=== PATIENT | male | born 1950 | race Caucasian/White ===

== ENCOUNTER → 2020-04-21 | Outpatient (CLI) | payer MEDICARE ==
[~2020-04-21] MED LIST: ASPIR 8181 M1 PO; ATROVENT15 ML NS; CLARITIN-D 24 H1 TA1 PO; CLOPIDOGREL75 MG PO; COUMADIN 1MG TAB1 M1 PO; COUMADIN7.5 MG PO; HYTRIN 5 M5 MG/1 CAP PO; LISINOPRIL10 MG PO; MEDROLDOSEPACK PO; NORCO 5-325 TA1 EACH PO; PERCOCET 5-3251 EACH PO; PREDNISONE 20 M20 M1 PO; SYMBICORT160 MCG/4. INH
== END ==
LOC: M.CT 14:55
DX: I71.2 Thoracic aortic aneurysm, without rupture (principal); I72.3 Aneurysm of iliac artery

== ENCOUNTER 2021-01-09 22:40 | Emergency (ER) | payer MEDICARE ==
[~2021-01-09] VITALS: Ht 185.4 cm; Wt 108.9 kg
[2021-01-09] MEDS ORDERED: PREDNISONE50 MG PO (23:30)
[2021-01-09 23:40] VITALS: BP 154/72
== END 2021-01-09 23:40 | disposition home or self-care (01) ==
LOC: M.ERS 22:40
DX: J30.9 Allergic rhinitis, unspecified (principal); Z20.822 Contact with and (suspected) exposure to COVID-19; I10 Essential (primary) hypertension; J45.909 Unspecified asthma, uncomplicated; G47.30 Sleep apnea, unspecified; Z95.5 Presence of coronary angioplasty implant and graft

== ENCOUNTER → 2021-01-29 | Outpatient (CLI) | payer OTHER ==
[~2021-01-29] MED LIST changes: +PREDNISONE50 MG PO
--- NOTE | 2021-02-04 14:36 | PF ---
[address] [address] PULMONARY FUNCTION REPORT Name: JOSE ROBERTSON Room: [facility] Ramos#: [id number] Admission: 01/29/21 Attend Phys: BECCA Landon Discharge: Date of : 50 Report #: [id number] THIS REPORT FOR: cc: Harshal Brunson MD, Stephen R. MD Pervez, Adeel MD ~ DATE OF SERVICE: 01/29/2021 The FEV1/FVC ratio is decreased to 63% with an FVC decreased to 66%. The FEV1 is also decreased to 57%. The [id number] is decreased to 38%. After the administration of a bronchodilator, there is a 22% increase in the FVC, which exceeds 200 mL and is consistent with reversibility and 11% increase in FEV1 is also noted. The patient's post-bronchodilator FEV1 is 2.28 liters. The total lung capacity is normal at 89% with residual volume normal, but close to the upper limit of normal range at 114%. The DLCO as adjusted for hemoglobin is decreased to 59%. The flow volume loop is concave upwards. IMPRESSION: 1. Moderate obstruction with evidence of reversibility. 2. Lung volumes are normal, but residual volume is close to the upper limit of normal range, likely due to underlying obstructive lung disease. 3. The DLCO as adjusted for hemoglobin is decreased to 59%. <ELECTRONICALLY SIGNED> By: Marito Marroquin MD 02/04/21 [id number] yomaria Crockett
== END ==
LOC: M.PUL 13:06
PROVIDERS: ATTEND Nurse Practitioner Family
DX: J98.4 Other disorders of lung (principal); R06.02 Shortness of breath

== ENCOUNTER 2021-03-04 02:30 | Emergency (ER) | payer MEDICARE, OTHER ==
[~2021-03-04] VITALS: Ht 185.4 cm; Wt 101.2 kg
[~2021-03-04 02:30] MED LIST changes: -COUMADIN7.5 MG PO; +JANTOVEN5 MG PO
[2021-03-04] MEDS ORDERED: NORVASC 2.5 MG2.5 M1 PO (03:08)
[2021-03-04] MEDS ORDERED: METFORMIN HCL500 M3 PO (03:09)
[2021-03-04] MEDS ORDERED: LORATIDINE 10 M10 M1 PO (03:26)
[2021-03-04] MEDS ORDERED: MEDROLDOSEPACK PO (05:23)
[2021-03-04 05:34] VITALS: BP 133/61
== END 2021-03-04 05:34 | disposition home or self-care (01) ==
LOC: M.ERS 02:30
DX: T78.49XA Other allergy, initial encounter (principal); Z20.822 Contact with and (suspected) exposure to COVID-19; R22.0 Localized swelling, mass and lump, head; H11.31 Conjunctival hemorrhage, right eye; I10 Essential (primary) hypertension; J45.909 Unspecified asthma, uncomplicated; Z95.5 Presence of coronary angioplasty implant and graft; Z79.01 Long term (current) use of anticoagulants; Z79.899 Other long term (current) drug therapy; Z88.1 Allergy status to other antibiotic agents; X58.XXXA Exposure to other specified factors, initial encounter

== ENCOUNTER 2021-05-15 05:55 | Emergency (ER) | payer OTHER ==
[~2021-05-15] VITALS: Ht 185.4 cm; Wt 94.8 kg
[~2021-05-15 05:55] MED LIST changes: +LORATIDINE 10 M10 M1 PO; +METFORMIN HCL500 M3 PO; +NORVASC 2.5 MG2.5 M1 PO
[2021-05-15] MEDS ORDERED: PROSCAR 5MG TABL5 M1 PO (07:11)
[2021-05-15 08:30] LABS: URINE BLOOD 2+ (Negative); URINE CLARITY CLEAR; URINE COLOR YELLOW; URINE GLUCOSE-RANDOM NEGATIVE (Negative); URINE KETONES 1+ (Negative); URINE LEUKOCYTES-REFLEX 1+ (Negative); URINE NITRITE-REFLEX NEGATIVE (Negative); URINE PROTEIN 2+ (Negative); URINE SPECIFIC GRAVITY 1.025 (1.005-1.030); URINE UROBILINOGEN 0.2 E.U./dl (0.2-1.0)
[2021-05-15 08:32] LABS: ICTOTEST (BILI CONFIRMATORY) Negative (Negative); URINE BILIRUBIN 1+ (Negative)
[2021-05-15 08:43] LABS: BACTERIA-REFLEX 1-9 Few /HPF (None Seen); CASTS None Seen /LPF (None Seen); CRYSTALS None Seen /LPF (None Seen); MUCUS 0-3 Light strn/LPF (None Seen); SQUAMOUS 0-3 Few /LPF (0-3); URINE RBC 3-10 Few /HPF (0-2); URINE WBC-REFLEX 6-15 Few /HPF (0-5)
[2021-05-15 09:08] LABS: HEMATOCRIT 47.6 % (42.0-52.0); HEMOGLOBIN 16.6 gm/dL (14.0-18.0); MCH 33.1 pg (26.0-34.0); MCHC 34.8 g/dL (28.0-37.0); MPV 7.3 fl. (7.2-11.1); NUCLEATED RBCS 0 /100WBC; PLATELET COUNT* 242 thou/uL (150-400); RBC 5.01 mil/uL (4.50-6.00); WBC 12.9 thou/uL (4.0-11.0)
[2021-05-15 09:18] LABS: CALCIUM 8.4 mg/dL (8.5-10.1); CREATININE 0.9 mg/dL (0.6-1.3); POTASSIUM 4.1 mmol/L (3.5-5.1)
[2021-05-15 09:22] LABS: ALBUMIN 3.5 g/dL (3.4-5.0); TOTAL BILIRUBIN 0.9 mg/dL (<0.1-1.0); TOTAL PROTEIN 7.3 g/dL (6.4-8.2)
[2021-05-15] MEDS ORDERED: PYRIDIUM200 MG PO (09:41)
[2021-05-15 09:56] LABS: INR 1.9; PROTIME 19.6 Seconds (9.20-11.50)
[2021-05-15 11:09] VITALS: BP 164/72
[2021-05-15 11:28] LABS: ABSOLUTE LYMPHOCYTES 0.9 thou/uL (0.8-5.3); ABSOLUTE MONOCYTES 0.4 thou/uL (0.0-1.2); ABSOLUTE NEUTROPHILS 11.6 thou/uL (1.6-8.1); PLATELET ESTIMATE ADEQUATE
== END 2021-05-15 11:10 | disposition home or self-care (01) ==
LOC: M.ERS 05:55
PROVIDERS: Emergency Medicine Emergency Medical Services
DX: N39.0 Urinary tract infection, site not specified (principal); Z20.822 Contact with and (suspected) exposure to COVID-19; I10 Essential (primary) hypertension; J45.909 Unspecified asthma, uncomplicated; Z88.1 Allergy status to other antibiotic agents

== ENCOUNTER → 2021-10-05 | Outpatient (CLI) | payer OTHER ==
[~2021-10-05] MED LIST changes: +PROSCAR 5MG TABL5 M1 PO; +PYRIDIUM200 MG PO
== END ==
LOC: M.RAD 13:09
PROVIDERS: ATTEND Nurse Practitioner Family
DX: J44.9 Chronic obstructive pulmonary disease, unspecified (principal); J94.8 Other specified pleural conditions; R04.2 Hemoptysis

== ENCOUNTER → 2021-10-27 | Outpatient (CLI) | payer OTHER ==
--- NOTE | 2021-11-25 19:29 | PF ---
[address] [address] PULMONARY FUNCTION REPORT Name: JOSE ROBERTSON Room: [facility]IL[facility] Ramos#: [id number] Admission: 10/27/21 Attend Phys: BECCA Landon Discharge: Date of : 50 Report #: [id number] THIS REPORT FOR: cc: Harshal Brunson MD, Stephen R. MD Pervez, Adeel MD ~ DATE OF VISIT: 10/27/2021 The FEV1/FVC ratio is markedly decreased to 49% with an FVC normal at 82%. The FEV1 is decreased to 55%. The FEF 25-75 is decreased to 16%. After the administration of a bronchodilator, there is no significant increase in any of these values. The patient's post-bronchodilator FEV1 is noted to be 2.10 liters. The flow volume loop is concave upwards. The total lung capacity is normal at 85%. The residual volume is normal at 93%. The DLCO as adjusted for hemoglobin is decreased to 66%. IMPRESSION: 1. Spirometry indicates a fairly significant obstruction without evidence of reversibility, still in the moderate range, but parameters are just above criteria for severe obstruction. 2. Normal lung volumes. 3. The DLCO as adjusted for hemoglobin is decreased to 66%. <ELECTRONICALLY SIGNED> By: Marito Marroquin MD 11/25/21 [id number] MD yomaira Alarcon
== END ==
LOC: M.PUL 09:41
PROVIDERS: ATTEND Nurse Practitioner Family
DX: R04.2 Hemoptysis (principal)